=== PATIENT | female | born 1970 | race Caucasian/White ===

== ENCOUNTER → 2019-11-16 | Day surgery (SDC) | payer BC, OTHER ==
[2019-11-12 14:36] LABS: BASOPHILS # (AUTO) 0.1 (0.0-0.1); BASOPHILS % 0.9 % (0.0-1.0); EOSINOPHILS # (AUTO) 0.5 (0.0-0.4); HEMATOCRIT 39.5 % (34.2-44.1); HEMOGLOBIN 12.3 g/dL (12.0-16.0); LYMPHOCYTES # (AUTO) 2.1 (1.0-3.2); MEAN CORPUSCULAR HEMOGLOBIN 28.9 pg (28-32); MEAN CORPUSCULAR HGB CONC 31.1 g/dL (31-35); MEAN CORPUSCULAR VOLUME 92.9 fL (81-99); MONOCYTES # (AUTO) 0.5 (0.2-0.8); MONOCYTES % 8.1 % (4.4-11.3); NEUTROPHILS # (AUTO) 3.3 (2.1-6.9); NEUTROPHILS % 51.7 % (38.7-80.0); PLATELET COUNT 329 x10e3/uL (140-360); RED BLOOD COUNT 4.25 x10e6/uL (3.6-5.1); RED CELL DISTRIBUTION WIDTH 13.8 % (11.7-14.4)
--- NOTE | 2019-11-12 15:40 | Diagnostic Imaging Report ---
EXAMINATION: CHEST 2 VIEWS INDICATION: Pre-operative COMPARISON: None FINDINGS: LINES/TUBES:None LUNGS:The lungs are well-inflated. No focal consolidation or pulmonary edema. Mild bibasilar subsegmental atelectasis. PLEURA:No pleural effusion or pneumothorax. MEDIASTINUM:The cardiomediastinal silhouette appears normal in size and shape. BONES/SOFT TISSUES:No acute osseous injury. ABDOMEN:No free air under the diaphragm. IMPRESSION: Mild bilateral subsegmental atelectasis. No focal pneumonia or pulmonary edema. Signed by: Yury Caruso MD on 11/12/2019 3:37 PM
[~2019-11-16] MED LIST: ABILIFY5 MG PO; ACETAMINOPHEN/CODEINE 300MG - 30MG TAB ONE; AMBIEN10 MG PO; BUPIVACAINE 0.25% 30ML SDV INJ ONE; CALCIUM CARBON500 MG PO; CEFAZOLIN SOD 1 GM/NS 50ML 100 ML IV ONE; CYMBALTA30 MG PO; DEXAMETHASONE SOD PHOS INJ 4 MG/ML VIAL ONE; ETOMIDATE 2 MG/ML 10 ML INJ IV ONE; FENTANYL CITRATE/PF 100MCG/2 ML INJ ONE; GABAPENTIN300 MG PO; LAMOTRIGINE100 MG PO; LEVALBUTER1.25 MG/3 INH; LIDOCAINE HCL 2% LOCAL INJ 5 ML SDV VIAL INJ ONE; LIOTHYRONINE SO5 MCG PO; MIDAZOLAM HCL 2 MG/2 ML VIAL ONE; NALOXONE HCL INJ 0.4 MG/ML AMP ONE; NORCO 7.5-3251 EACH PO; ONDANSETRON HCL INJ 2MG/ML 2ML 2 MG/ML VIAL ONE; ROCURONIUM BROMIDE 10 MG/ML 5ML VIAL IV ONE; SEROQUEL25 MG PO; SEVOFLURANE INHAL SOLN 250 ML PEN BTL ONE; SPIRIVA18 MCG INH; SYNTHROID112 MCG PO; TIZANIDINE HCL4 MG PO; VIT D PO
[2019-11-16 12:50] VITALS: BP 115/72
--- NOTE | 2019-11-16 19:05 | Operative Report ---
DATE OF PROCEDURE: 11/16/2019 SURGEON: David Kasper MD PREOPERATIVE DIAGNOSIS: Chronic cholecystitis with calculus. POSTOPERATIVE DIAGNOSIS: Chronic cholecystitis with calculus. PREOPERATIVE INDICATION: Treat disease, prevent biliary related complications. PROCEDURE: Laparoscopic cholecystectomy. ANESTHESIA: General. NEUROPATHOLOGIST: Freeman Ramírez, surgical 1st music library assistant (needed due to complexity of case). FLUIDS: 400 mL of crystalloid. ESTIMATED BLOOD LOSS: 30 mL. DRAINS: None. COMPLICATIONS: None. SPECIMENS: Gallbladder. GRAFTS: None. FINDINGS: Inflammation with gallbladder wall thickening. PROCEDURE IN DETAIL: The patient was brought to the operating room, was intubated under general endotracheal anesthesia. She was sterilely prepped and draped in the usual fashion. A preprocedure pause was performed identifying the patient, use of preop antibiotics, intended procedure, and staff surgeon. Access was gained via a 5 mm left subcostal incision using a Veress needle. Abdomen was insufflated to a pressure of 15 mmHg pressure. Three additional trocars were placed in standard positions. The gallbladder was grasped at the fundus and retracted cephalad and to the right of liver. The gallbladder was quite distended and was inflamed. I then dissected out the cholecystic hepatic triangle and obtained a critical view of dissection. I had clipped the cystic duct twice on the stay side, once on the specimen side and divided the cystic duct. The cystic artery was divided as well after placing clips proximally and distally and cutting it with scissors. I then excised the gallbladder off the gallbladder fossa using electrocautery. The gallbladder was removed through the periumbilical port site with EndoCatch bag. The port site was closed with 0 Vicryl sutures using Leonidas Lazaro technique. I placed a sheet of Surgicel on the gallbladder fossa because it was oozy. Hemostasis was verified. We desufflated the abdomen, removed the trocars. Incision sites were closed with 4-0 Monocryl suture in a subcuticular fashion. Dermabond dressings were applied. A 0.25% bupivacaine was used both at the preperitoneal incision sites. The patient tolerated the procedure well. All surgical sponge and instrument counts correct. Type of wound was type 2, clean contaminated. MD ERLNI Joy/HARRIET /[id number]
== END | disposition home or self-care (01) ==
LOC: OR 08:00
PROVIDERS: ATTEND Surgery
DX: K80.10 Calculus of gallbladder with chronic cholecystitis without obstruction (principal); J44.9 Chronic obstructive pulmonary disease, unspecified; K21.9 Gastro-esophageal reflux disease without esophagitis; E03.9 Hypothyroidism, unspecified; F31.9 Bipolar disorder, unspecified; Z88.8 Allergy status to other drugs, medicaments and biological substances; Z88.6 Allergy status to analgesic agent; Z88.2 Allergy status to sulfonamides; Z01.810 Encounter for preprocedural cardiovascular examination; Z01.812 Encounter for preprocedural laboratory examination; Z01.818 Encounter for other preprocedural examination; Z11.59 Encounter for screening for other viral diseases; Z99.81 Dependence on supplemental oxygen; Z68.32 Body mass index [BMI] 32.0-32.9, adult; Z86.73 Personal history of transient ischemic attack (TIA), and cerebral infarction without residual deficits
CPT/HCPCS: 36415; 47562; 71046; 85025; 87635; 88304; 93005; J0690; J1100; J2001; J2250; J2310; J2405; J3010